=== PATIENT | female | born 1970 | race Caucasian/White ===

== ENCOUNTER 2019-10-24 12:53 | Emergency (ER) | payer OTHER ==
[~2019-10-24] VITALS: Ht 160 cm; Wt 72.6 kg
--- NOTE | 2019-10-24 12:55 | NUR ---
Patient to ER bed 6 to gown for evaluation. Side rails up. Report given to Ubadlo CEDEÑO.
[2019-10-24 12:59] VITALS: BP_SYST 146
--- NOTE | 2019-10-24 13:00 | NUR ---
Pt came to ER via BLS ambulance for dizziness, pt states she is feeling better upon arrival. Pt states she had been feeling dizzy, unable to walk, but now has no complaints.
--- NOTE | 2019-10-24 13:05 | NUR ---
ER at bedside examining patient.
[2019-10-24 13:38] LABS: BASOPHILS # (AUTO) 0.1 K/uL (0.0-0.2); BASOPHILS % (AUTO) 1.3 % (0.0-2.0); EOSINOPHILS # (AUTO) 0.5 K/uL (0.0-0.4); EOSINOPHILS % (AUTO) 7.4 % (0.0-4.0); HEMATOCRIT 38.5 % (36-48); HEMOGLOBIN 13.7 g/dL (12.0-16.0); LYMPHOCYTES # (AUTO) 1.9 K/uL (1.0-5.5); MEAN CORPUSCULAR HEMOGLOBIN 33 pg (27-31); MEAN CORPUSCULAR HGB CONC 36 % (32-36); MEAN CORPUSCULAR VOLUME 92 fL (79.0-98.0); MONOCYTES # (AUTO) 0.4 K/uL (0.0-1.0); MONOCYTES % (AUTO) 6.1 % (1.7-9.3); NEUTROPHILS # (AUTO) 4.3 K/uL (1.8-7.7); NEUTROPHILS % (AUTO) 59.2 % (40.0-70.0); PLATELET COUNT (AUTO) 170 K/uL (130-430); RED BLOOD CELL COUNT(AUTO) 4.21 MIL/uL (4.2-6.2); WHITE BLOOD COUNT (AUTO) 7.3 K/uL (4.8-10.8)
[2019-10-24 13:50] LABS: PROTHROMBIN TIME 10.2 SECS (9.5-12.5)
[2019-10-24 13:56] LABS: ALBUMIN 3.5 g/dL (3.4-4.8); CALCIUM 8.7 mg/dL (8.4-11.0); CREATININE 0.78 mg/dL (0.55-1.30); POTASSIUM 3.5 mmol/L (3.5-5.1); TOTAL BILIRUBIN 0.5 mg/dL (0.0-1.0)
--- NOTE | 2019-10-24 15:14 | NUR ---
Pt resting in [facility] no distress at this time, AO4, no c/o
[2019-10-24 16:01] VITALS: BP_SYST 123
--- NOTE | 2019-10-24 16:02 | NUR ---
Patient given written and verbal discharge instructions and verbalizes understanding. ER MD discussed with patient the results and treatment provided. Patient in stable condition. ID arm band removed. Rx of Meclizine given. Patient educated on pain management and to follow up with PMD. Pain Scale 0/10. Opportunity for questions provided and answered. Medication side effect fact sheet provided.
== END 2019-10-24 16:01 | disposition home or self-care (01) ==
LOC: SED 12:53
DX: R42 Dizziness and giddiness (principal)
CPT/HCPCS: 36415; 70450-TC; 71045; 80053; 81025; 83880; 84484; 85025; 85610-TC; 85730-TC; 93005; 99285

== ENCOUNTER 2021-11-18 12:00 | Emergency (ER) | payer OTHER ==
[~2021-11-18] VITALS: Ht 160 cm; Wt 86.2 kg
[2021-11-18 12:15] VITALS: BP_SYST 163
--- NOTE | 2021-11-18 13:02 | NUR ---
pt bib self to ER from work. CC vertigo Pt notes blood pressure has been elevated throughout the day 180/90. Pt notes anxiety when traveling in this area, and states stressful work place. Pt denies NVD, pt skin intact aaox4. bed down, rail up, is bedside.
--- NOTE | 2021-11-18 13:43 | NUR ---
pt c/o hunger, blood sugar 105 , gave reg. diet turkey sandwich. pt is eating bedside bp 140/80.
[2021-11-18] MEDS ORDERED: MECLIZINE HCL 25 MG TABLET (ANITVERT) PO ONE (14:00)
[2021-11-18] MEDS ORDERED: METOCLOPRAMIDE HCL 10 MG/2 ML VIAL IVP ONE (14:00)
[2021-11-18 14:22] LABS: BASOPHILS # (AUTO) 0.1 K/uL (0.0-0.2); BASOPHILS % (AUTO) 0.6 % (0.0-2.0); EOSINOPHILS % (AUTO) 0.4 % (0.0-4.0); HEMATOCRIT 38.8 % (36-48); LYMPHOCYTES # (AUTO) 1.4 K/uL (1.0-5.5); LYMPHOCYTES % (AUTO) 14.9 % (20.5-51.5); MEAN CORPUSCULAR VOLUME 89 fL (79.0-98.0); MONOCYTES # (AUTO) 0.4 K/uL (0.0-1.0); MONOCYTES % (AUTO) 3.8 % (1.7-9.3); NEUTROPHILS # (AUTO) 7.5 K/uL (1.8-7.7); NEUTROPHILS % (AUTO) 80.3 % (40.0-70.0); PLATELET COUNT (AUTO) 222 K/uL (130-430); RED BLOOD CELL COUNT(AUTO) 4.37 MIL/uL (4.2-6.2); RED CELL DISTRIBUTION WIDTH 12.2 % (9.0-15.0); WHITE BLOOD COUNT (AUTO) 9.3 K/uL (4.8-10.8)
--- NOTE | 2021-11-18 14:30 | NUR ---
Pt notes no longer distressed, refusing Ct Scan. Pt notes recently had an MRI and does not want to submit to this test. Pt notes anxiety and acide reflux. will notify dr of change of condition.
[2021-11-18 14:42] LABS: ANION GAP 5 (5-15); CALCIUM 8.6 mg/dL (8.4-11.0); CHLORIDE 103 mmol/L (98-107); CREATININE 0.91 mg/dL (0.55-1.30); GLUCOSE 150 mg/dL (70-99); POTASSIUM 3.8 mmol/L (3.5-5.1); UREA NITROGEN, BLOOD 8 mg/dL (8-21)
[2021-11-18 14:44] LABS: GFR AFRICAN AMERICAN 85 mL/min (>90)
[2021-11-18] MEDS ORDERED: MAG-AL HYDROX/SIMETH 30 ML UDC PO ONE (14:45)
[2021-11-18] MEDS ORDERED: LORazepam 2 MG/ML VIAL IVP ONE (14:45)
[2021-11-18 14:59] LABS: ALANINE AMINOTRANSFERASE 22 U/L (12-78); ALBUMIN 3.6 g/dL (3.4-4.8); ASPARTATE AMINOTRANSFERASE 16 U/L (10-37); TOTAL BILIRUBIN 0.5 mg/dL (0.0-1.0)
--- NOTE | 2021-11-18 16:41 | NUR ---
Pt refused ativan and reglan due to change of condition. Pt is concerned with abdominal discomfort. MD notified, MOM given.
--- NOTE | 2021-11-18 17:15 | NUR ---
PT REQUESTING AMA FORM STATES MUST LEAVE TO CARE FOR YOUNG CHILDREN.
[2021-11-18 17:16] LABS: PHOSPHORUS 2.9 mg/dL (2.7-4.5)
--- NOTE | 2021-11-18 18:14 | NUR ---
Patient does not wish to proceed with medical care recommended by DR Gibbs. Patient given information related to possible complications, up to and including , which could occur as a result of leaving hospital at this time. Patient verbalizes understanding of risks involved leaving against medical advice. Patient has signed AMA form.
== END 2021-11-18 18:15 | disposition left against medical advice (07) ==
LOC: SED 12:00
DX: R42 Dizziness and giddiness (principal); R11.0 Nausea; R51.9 Headache, unspecified; Z79.899 Other long term (current) drug therapy
CPT/HCPCS: 36415; 80053; 81025; 82962; 83735; 84100; 84484; 85025; 93005; 99284; J2060; J2765; J8597